=== PATIENT | male | born 1965 | race Caucasian/White ===

== ENCOUNTER 2024-05-15 18:48 | Inpatient (IN) | payer OTHER, SELFPAY ==
[2024-05-15] VITALS (17 sets, daily range): BP systolic 80–115; BP diastolic 16–79; BMI 47.0
[2024-05-15 14:23] LABS: Glucose - Point of Care 198 mg/dl (70-99)
[2024-05-15] MEDS: NSS 1000 IV ×2 (14:50→20:32)
[2024-05-15 14:54] LABS: % Basophils 0.4 % (0-2); % Eosinophils 1.9 % (0-6); % Immature Granulocytes 0.3 % (0-0.5); % Monocytes 8.3 % (1.7-9.3); % Neutrophils 56.1 % (42.2-75.2); Absolute Eosinophils 0.1 10^3/uL (0-0.7); Absolute Lymphocytes 2.3 10^3/uL (1.2-3.4); Absolute Monocytes 0.6 10^3/uL (0.1-0.6); Absolute Neutrophils 3.8 10^3/uL (1.4-6.5); Hematocrit 30.5 % (39.0-52.0); Mean Corp Hgb Conc. 36.1 g/dL (33.0-37.0); Mean Corpuscular Hgb 30.7 pg (27.0-31.0); Mean Corpuscular Volume 85.2 fL (80.0-94.0); Mean Platelet Volume 10.7 fL (7.4-10.4); Nucleated Red Blood Cells % 0 % (-); Platelet Count 187 10^3/uL (130-400); Red Blood Cell Count 3.58 10^6/uL (4.70-6.10); White Blood Cell Count 6.9 10^3/uL (4.8-10.8)
--- NOTE | 2024-05-15 15:00 | ED.GENMED ---
History of Present Illness
General
Chief Complaint: Blood Pressure Problem
Source: patient
Exam Limitations: none
Time Seen by Provider: 05/15/24 14:29
History of Present Illness
History of Present Illness:
58 year old male presents with complaints of weakness, lightheadedness. This has been progressively getting worse over the past 2 to 3 weeks. Also associated with chest pain 2 days ago. The pain stayed in his chest without radiation. He
currently does not have any chest pain. He denies any leg swelling. He denies any dark or tarry stools. He states he has been eating and drinking well. He is not anticoagulated. He was soft off of his Ozempic 3 weeks ago when he increased the
dose. He also stopped the metoprolol 3 weeks ago. He currently still is on torsemide as well as lisinopril daily. He states he has been getting low blood pressure readings at home
Past History
Past History
ED Past Medical History: Other (Sleep apnea, hypothyroidism, edema)
ED Past Surgical History: Orthopedic
Social History
Tobacco: Non-smoker
Alcohol: Occasional
Personal:
Living: with family
Family History
Family History: Diabetes, CAD and Cancer
Phy Exam
Physical Exam
Physical Exam:
General: Well-appearing obese male no acute respiratory distress
HEENT: Normocephalic atraumatic pupils equal round reactive to light
Heart: Regular rate and rhythm no murmurs
Lungs: Breath sounds distant secondary to body habitus but mostly clear
Abdomen is soft nontender nondistended no guarding or rebound normal bowel sounds
Extremities: No cyanosis or edema
Course
Orders/Labs/Results
Orders:
Orders
05/15/24 14:06
ECG [Electrocardiogram (*1)] Urgent
Reason for Study: Vertigo / Dizzy
05/15/24 14:07
EKG- Treatment ONCE
05/15/24 14:37
Complete Blood Count/With Diff Urgent
05/15/24 14:55
Add On- LAB Urgent
Tests Added?: tsh reflex to free t4
05/15/24 16:03
0.9% Sodium Chloride 1000 ml [Nss] 1,000 ml IV BOLUS
05/15/24 16:14
Comprehensive Metabolic Panel Urgent
Free T4 Urgent
TSH Reflex To Free T4 Urgent
Comment: ADD ON
Troponin I Urgent
Abnormal Lab Results
05/15/24 05/15/24 05/15/24
14:21 14:37 16:14
RBC 3.58 L 10^6/uL
(4.70-6.10)
Hgb 11.0 L g/dL
(13.0-18.0)
Hct 30.5 L %
(39.0-52.0)
MPV 10.7 H fL
(7.4-10.4)
Sodium 134 L mmol/L
(135-145)
BUN 91 H mg/dl
(9-20)
Creatinine 4.1 H* mg/dL
(0.7-1.3)
Glucose 119 H mg/dl
(70-99)
TSH (Reflex) 5.77 H uIU/ml
(0.47-4.68)
POC Glucose 198 H mg/dl
(70-99)
05/15/24 14:37
05/15/24 16:14
Vital Signs
Initial and Last Documented VS:
Initial Vital Signs
Temp Pulse Resp BP Pulse Ox
98.6 F 73 18 105/77 98
05/15/24 14:07 05/15/24 14:07 05/15/24 14:07 05/15/24 14:07 05/15/24 14:07
Last Documented Vital Signs
Temp Pulse Resp BP Pulse Ox
98.6 F 83 18 85/52 97
05/15/24 14:07 05/15/24 17:30 05/15/24 17:30 05/15/24 17:15 05/15/24 17:30
MDM/Problems Addressed
Differential Diagnosis Includes:
Sensation of weakness and lightheadedness. Consider volume depletion versus medication effect versus anemia versus electrolyte abnormality. He did complain of chest pain 2 days ago. Will do cardiac workup including EKG and troponin to evaluate
for ACS. EKG shows normal sinus rhythm without ischemic change
Troponin pending. Thyroid pending. Fluids ordered secondary to persistently low blood pressure values. No fever here.
*Critical Care Note
Total Time (30-74mins, 75-104mins- exclusive of procedures): Not Applicable
Update Note
Update Note:
Patient persistently hypotensive here he is more alert after liter of fluid. Most notably on labs patient has acute kidney injury with a creatinine of 4.1. Most recent comparison was from December 2020 which had a normal creatinine then. In the
setting of hypotension, despite stopping antihypertensives 3 weeks ago and now acute kidney injury patient requires admission to hospital.
ED Attending Note
-
Portions of this chart may have been created with voice recognition software.� Occasional wrong word or��sound alike� substitutions may have occurred due to the inherent limitations of voice recognition software.
Discharge Plan
Departure
Patient Disposition: Admit
Date of Disposition: 05/15/24
Time of Disposition: 17:55
Admit to: Telemetry
Presentation/result/management discussed w/ accepting MD/DO: Hospitalist
Discharge Problem:
Acute kidney failure
Prescriptions:
No Action
atorvastatin 40 MG tablet
40 mg PO QPM
torsemide 20 MG tablet
20 mg PO BID
allopurinol 100 MG tablet
100 mg PO DAILY
aspirin 81 MG tablet,delayed release (DR/EC)
81 mg PO DAILY
lisinopril 10 MG tablet
10 mg PO BID
metformin 500 MG tablet
500 mg PO BID@0800,1700 Qty: 0 0RF
gabapentin 600 mg Tablet
1,200 mg PO TID
lidocaine 4 % Adhesive Patch,Medicated
1 patch TOPICAL DAILYPRN PRN (Reason: lower back and neck)
trazodone 50 mg Tablet
50 mg PO HSPRN PRN (Reason: sleep)
sildenafil 100 mg Tablet
100 mg PO DAILYPRN PRN (Reason: ed)
levothyroxine [Synthroid] 75 mcg Tablet
75 mcg PO DAILY
oxycodone-acetaminophen [Percocet] 5-325 mg Tablet
1 tab PO Q8HPRN PRN (Reason: severe pain)
methocarbamol 750 mg Tablet
750 mg PO TID
tamsulosin [Flomax] 0.4 mg Capsule
0.4 mg PO HS
pantoprazole [Protonix] 40 mg Tablet,Delayed Release (Dr/Ec)
40 mg PO DAILY
albuterol sulfate [ProAir HFA] 90 mcg/actuation Hfa Aerosol Inhaler
2 puff INHALATION R Q6HPRN PRN (Reason: sob)
Referrals:
NONE,* [Family Provider] -
Interventions
Interventions:
*Risk Screen - Suicide Last Done: 05/15/24 14:07
*General Assessment Last Done: 05/15/24 14:07
*Neglect/Abuse Screening Last Done: 05/15/24 14:07
*ED COVID-19 Vaccine History Last Done: 05/15/24 14:35
ED- Cardiac Assessment Last Done: 05/15/24 14:35
ED- Neurological Assessment Last Done: 05/15/24 14:35
ED- Pulmonary Assessment Last Done: 05/15/24 14:35
Discharge Date and Time
Print Language: CROATIAN
[2024-05-15 16:41] LABS: ALT (SGPT) 23 U/L (0-50); AST (SGOT) 25 U/L (17-59); Albumin 4.3 g/dl (3.5-5.0); Alkaline Phosphatase 72 U/L (38-126); Blood Urea Nitrogen 91 mg/dl (9-20); Calcium 8.9 mg/dl (8.4-10.2); Carbon Dioxide 24 mmol/L (22-30); Chloride 98 mmol/L (98-107); Glucose 119 mg/dl (70-99); Potassium 3.6 mmol/L (3.5-5.1); Sodium 134 mmol/L (135-145); Total Bilirubin 0.5 mg/dl (0.2-1.3); Total Protein 6.8 g/dl (6.3-8.2); eGFR 16.05
[2024-05-15 16:54] LABS: Troponin I < 0.012 ng/ml
[2024-05-15 17:09] LABS: TSH Reflex To Free T4 5.77 uIU/ml (0.47-4.68)
--- NOTE | 2024-05-15 18:30 | HPS.HSE ---
Family Physician
-
Family Physician: * NONE
Chief Complaint
-
weakness
History of Present Illness
58-year-old male past medical history of hypertension, PVCs/bigeminy, hyperlipidemia, diabetes, obesity, chronic lower extremity edema, gout, hypothyroidism, BPH, obstructive sleep apnea, traumatic injury 2 years ago complicated by fractured
ribs/punctured lung, cervical disc herniations, chronic back pain, gastric ulcers, presenting with weakness and lightheadedness progressively getting worse over the past 2 to 3 weeks with an episode of passing out. He has had associated chest pain
2 days ago described as pressure although he has chronic back pain/left lower extremity pain from prior trauma. He denies any lower extremity edema. He denies any black or bloody stool. He denies any changes in medications prior to onset of
symptoms. His primary care physician told him to stop taking metoprolol due to low blood pressure but he is continuing to take lisinopril and torsemide.
He has recently been having nausea and some vomiting which was attributed to increasing doses of Ozempic which has since been discontinued for the past few weeks. He denies any diarrhea currently. He denies any fevers or chills. He denies any
cough.
He denies any history of cardiac problems as per his home health assistant. He takes torsemide for lower extremity edema.
He denies smoking or alcohol use.
Medical History
Past Medical History
Past Medical History: Reports Other (hypertension, PVCs/bigeminy, hyperlipidemia, diabetes, obesity, chronic lower extremity edema, gout, hypothyroidism, BPH, obstructive sleep apnea, traumatic injury 2 years ago complicated by fractured
ribs/punctured lung, cervical disc herniations, chronic back pain, gastric ulcers,)
Past Surgical History: Reports Orthopedic
Social History
Tobacco: Non-smoker
Alcohol: None
Drug: None
Family History
Family History: Not pertinent
Allergies / Home Medications
Allergies reflects when Allergies were last updated in [employer].
Home Medications with original date entered in [employer]
Allergy/Medication List:
Allergies
Allergy/AdvReac Type Severity Reaction Status Date / Time
Cephalosporins Allergy Unknown Verified 12/27/20 17:07
Penicillins Allergy Rash Verified 12/27/20 17:07
Home Medications
allopurinol 100 mg tablet 100 mg PO DAILY 12/27/20
aspirin 81 mg tablet,delayed release 81 mg PO DAILY 12/27/20
atorvastatin 40 mg tablet 40 mg PO QPM 12/27/20
lisinopril 10 mg tablet 10 mg PO BID 12/27/20
metformin 500 mg tablet 500 mg PO BID@0800,1700 ##0 12/27/20
torsemide 20 mg tablet 20 mg PO BID 12/27/20
albuterol sulfate 90 mcg/actuation aerosol inhaler 2 puff inhalation R Q6HPRN PRN sob 05/15/24
gabapentin 600 mg tablet 1,200 mg PO TID 05/15/24
levothyroxine 75 mcg tablet (Synthroid) 75 mcg PO DAILY 05/15/24
lidocaine 4 % topical patch 1 patch topical DAILYPRN PRN lower back and neck 05/15/24
methocarbamol 750 mg tablet 750 mg PO TID 05/15/24
oxycodone-acetaminophen 5 mg-325 mg tablet (Percocet) 1 tab PO Q8HPRN PRN severe pain 05/15/24
pantoprazole 40 mg tablet,delayed release (Protonix) 40 mg PO DAILY 05/15/24
sildenafil 100 mg tablet 100 mg PO DAILYPRN PRN ed 05/15/24
tamsulosin 0.4 mg capsule (Flomax) 0.4 mg PO HS 05/15/24
trazodone 50 mg tablet 50 mg PO HSPRN PRN sleep 05/15/24
Review of Systems
-
History Source: Patient
A 12 point ROS was completed and negative except as noted: Yes
Constitutional: Reports No Symptoms
EENT: Reports No Symptoms
Respiratory: Reports No Symptoms
Cardiac: Reports No Symptoms
Abdomen/GI: Reports No Symptoms
: Reports No Symptoms
Musculoskeletal: Reports No Symptoms
Skin: Reports No Symptoms
Neurological: Reports No Symptoms
Endocrine: Reports No Symptoms
Hematologic/Lymphatic: Reports No Symptoms
Psych: Reports No Symptoms
Physical Exam
Vital Signs
Vital Signs
Temp Pulse Resp BP Pulse Ox
98.6 F 79 17 100/67 97
05/15/24 14:07 05/15/24 18:15 05/15/24 18:15 05/15/24 18:15 05/15/24 17:30
Physical Exam
General: Well Developed, Well Nourished and No Apparent Distress
HEENT: NormoCephalic, Moist mucous membranes and Atraumatic
Respiratory: Clear
Cardiac: S1/S2 and Regular Rhythm; No Murmur or Rub
GI: Soft, Non Tender, Non Distended and Normal Bowel Sounds; No Organomegaly
Rectal: Deferred by Provider
Musculoskeletal: No Clubbing, No Cyanosis and No Edema
Skin: No Rash
Neuro: Nonfocal/grossly intact
Laboratory Results
-
05/15/24 14:37
05/15/24 16:14
Laboratory Results
Total Bilirubin 0.5 mg/dl (0.2-1.3) 05/15/24 16:14
AST 25 U/L (17-59) 05/15/24 16:14
ALT 23 U/L (0-50) 05/15/24 16:14
Alkaline Phosphatase 72 U/L (38-126) 05/15/24 16:14
Troponin I < 0.012 ng/ml 05/15/24 16:14
Data Reviewed
-
Lab Data: Labs Reviewed by me
Old Records: Reviewed
Impression/Plan
-
IMPRESSION:
PLAN:
# Hypotension secondary to lisinopril/torsemide
-No symptoms or signs of sepsis or infection
-Hold lisinopril, torsemide
-IV fluids
# Severe prerenal NATALIE secondary to hypotension
-Hold lisinopril, torsemide
-Continue IV fluids
-Check renal ultrasound
Essential hypertension
-Hold lisinopril
History of PVCs/bigeminy
Hyperlipidemia
-Continue statin
Type 2 diabetes
-Hold metformin
Obesity
Obstructive sleep apnea
-Continue CPAP
History of traumatic fall with prior fractured ribs, chronic back pain/cervical disc herniations, chronic pain
-Continue Percocet, gabapentin, lidocaine patch, methocarbamol
History of punctured lung from trauma
History of opioid use disorder in the past
Chronic lower extremity edema
-Hold torsemide
Gout
-Continue allopurinol
Hypothyroidism
-Continue levothyroxine
BPH
-Continue tamsulosin
GERD/history of upper GI bleeding secondary to gastric ulcers
-Continue Protonix
Insomnia
-Continue trazodone
Full code
DVT prophylaxis�heparin
Regular diet
[2024-05-15] MEDS: NEURONTIN 300 MG PO (20:44)
[2024-05-15] MEDS: FLOMAX 0.4 MG PO (20:44)
[2024-05-15] MEDS: PERCOCET 5/325 1 TABLET PO (20:44)
[2024-05-15] MEDS: HEPARIN 5000 UNITS SC (21:55)
[2024-05-16] MEDS: SYNTHROID 75 MCG PO (05:49)
[2024-05-16] MEDS: PERCOCET 5/325 1 TABLET PO (05:53)
[2024-05-16 05:55] LABS: % Basophils 0.6 % (0-2); % Eosinophils 2.2 % (0-6); % Immature Granulocytes 0.2 % (0-0.5); % Lymphocytes 46.1 % (20.5-51.1); % Monocytes 10.4 % (1.7-9.3); % Neutrophils 40.5 % (42.2-75.2); Absolute Eosinophils 0.1 10^3/uL (0-0.7); Absolute Lymphocytes 2.3 10^3/uL (1.2-3.4); Absolute Monocytes 0.5 10^3/uL (0.1-0.6); Hematocrit 30.4 % (39.0-52.0); Hemoglobin 10.6 g/dL (13.0-18.0); Mean Corp Hgb Conc. 34.9 g/dL (33.0-37.0); Mean Corpuscular Hgb 30.6 pg (27.0-31.0); Mean Corpuscular Volume 87.9 fL (80.0-94.0); Mean Platelet Volume 9.5 fL (7.4-10.4); Nucleated Red Blood Cells % 0 % (-); Platelet Count 137 10^3/uL (130-400); Red Blood Cell Count 3.46 10^6/uL (4.70-6.10)
[2024-05-16 06:08] LABS: ALT (SGPT) 22 U/L (0-50); AST (SGOT) 22 U/L (17-59); Albumin 4.3 g/dl (3.5-5.0); Alkaline Phosphatase 86 U/L (38-126); Blood Urea Nitrogen 84 mg/dl (9-20); Calcium 8.8 mg/dl (8.4-10.2); Carbon Dioxide 26 mmol/L (22-30); Chloride 98 mmol/L (98-107); Estimated Creatinine Clearance 38 ml/min; Glucose 116 mg/dl (70-99); Potassium 3.6 mmol/L (3.5-5.1); Sodium 137 mmol/L (135-145); Total Bilirubin 0.4 mg/dl (0.2-1.3); Total Protein 6.8 g/dl (6.3-8.2); eGFR 20.82
[2024-05-16 08:05] VITALS: BP 89/36
[2024-05-16 09:08] VITALS: BP 96/55
[2024-05-16] MEDS: ASPIR LOW (ENTERIC COATED) 81 MG PO (09:15)
[2024-05-16] MEDS: PROTONIX 40 MG PO (09:15)
[2024-05-16] MEDS: NEURONTIN 300 MG PO ×3 (09:15→22:05)
[2024-05-16] MEDS: NSS 1000 IV ×2 (09:16→22:02)
[2024-05-16] MEDS: HEPARIN 5000 UNITS SC ×2 (09:16→22:02)
[2024-05-16] MEDS: ZYLOPRIM 100 MG PO (09:34)
[2024-05-16 09:50] LABS: Glucose - Point of Care 121 mg/dl (70-99)
[2024-05-16 12:56] LABS: Glucose - Point of Care 109 mg/dl (70-99)
--- NOTE | 2024-05-16 14:16 | CM ---
CM met with pt at bedside
Pt lives with his in a 2 story home, 6 steps to enter
Independent, drives. Not working - disabled
DME - CPAP - unable to recall provider
SNF - past hx in [facility]
HH - no past hx
Has ride at d/c
PCP - Dr Leigh De Leon
Pharm - [facility]
CM will follow for d/c needs
Plan - anticipate home no needs
[2024-05-16 15:49] VITALS: BP 117/66
--- NOTE | 2024-05-16 16:12 | W.PN.HOSP.TC ---
Today's Communication/Plan
-
Continue IVF and trend BMP
Hold torsemide and lisinopril, avoid NSAIDs
Monitor urine output
Assessment / Plan
Assessment / Plan
#Nonoliguric prerenal NATALIE
-Secondary to reduced water intake, increase exercise, ACEi and torsemide
-Presented with serum creatinine of 4.1, downtrending to 3.3 on IVF today
-Renal ultrasound without any signs of hydronephrosis, UA without signs of glomerulonephritis
-No urine studies obtained in the ED, IVF given, no utility now
Plan
-Continue isotonic IVF, trend daily BMP
-Hold ROSA ISELA inhibitor and torsemide, avoid NSAIDs
-Monitor urinary output
#NIDDM2
-Home medications include metformin, recently started on GLP-1 agonist as well
-No known microvascular complications, no recent A1c to review
-Home metformin was held due to renal insufficiency admission
-Currently receiving ISS plus Accu-Chek
#Chronic lower extremity edema
-Likely venous stasis, currently on torsemide to reduce this
-He does have chronic dermatological findings, no actual edema now
-Would avoid diuretics due to his NATALIE; will consider more supportive measures for CVI
-Advised compression stockings and leg elevation at discharge
#Hypothyroidism
-Unclear etiology, no history of thyroid ablation or thyroidectomy
-Currently on levothyroxine at 75 mcg daily
-Appears stable
# PVCs/bigeminy
-Noted per history, heart rate appears regular today
-Not currently on any AV jessenia blockade
#Obstructive sleep apnea
-Unlikely related to chronic edema, no evidence for RV failure or pulm HTN
-Noncontributory
#Gout
-Home regimen includes allopurinol, no signs or symptoms of flare at this time
#H/O PUD
-Home regimen includes Protonix 40 mg daily
-No signs or symptoms of GI bleeding here
-Is currently receiving chemical DVT prophylaxis with heparin
#Traumatic injury 2 years ago from falling off a roof
#Chronic pain syndrome
-Follows with pain management, currently on multimodal regimen for analgesia
-Meds include gabapentin, methocarbamol, Percocet
DVT prophylaxis: Subcutaneous heparin
Diet: House
CODE STATUS: Full code
Anticipated Discharge: 24 - 48 hours
Subjective/Interval History
-
Date of Service: May 16, 2024
No acute events overnight. Patient states he feels well today, no acute complaints. Denies chest pain, shortness of breath, fevers or chills, nausea, vomiting, diarrhea. No urinary issues, states he is at baseline
He states that recently he has been more active during his recovery from a traumatic injury where he fell off a roof 2 years ago. Additionally, he has not been drinking as much water as previously. He also says that he was started on GLP-1 agonist
as an outpatient and as the dose increased he developed some diarrhea. Denies recent dose adjustments of his torsemide or lisinopril. He uses his torsemide for chronic lower extremity edema.
Objective Data
-
Labs:
Laboratory Results
05/16/24
05:33
WBC 5.0
Hgb 10.6 L
Hct 30.4 L
Plt Count 137 D
Sodium 137
Potassium 3.6
Chloride 98
Carbon Dioxide 26
BUN 84 H
Creatinine 3.3 H
Glucose 116 H
Calcium 8.8
Total Bilirubin 0.4
AST 22
ALT 22
Alkaline Phosphatase 86
Vital Signs:
Vital Signs
Temp Pulse Resp BP Pulse Ox
98.6 F 88 17 117/66 99
05/16/24 15:49 05/16/24 15:49 05/16/24 15:49 05/16/24 15:49 05/16/24 15:49
I&O
05/15/24 05/16/24 05/17/24
06:59 06:59 06:59
Output Total 1200 / 1200
Balance -1200 / -1200
Review of Systems
-
History Source: Patient
All other systems: Reviewed and negative
Physical Exam
-
General: No Apparent Distress, Comfortable, Conversant and Obese
HEENT: Normocephalic, Atraumatic, Moist Mucous Membranes and Anicteric
Respiratory: Clear to Auscultation and Non Labored Respirations; Negative Wheezes, Rales or Rhonchi
Cardiac: Regular Rhythm and S1/S2; Negative Murmur, Rub, JVD or Gallop
GI: Soft, Nontender, Nondistended and Normal Bowel Sounds
Musculoskeletal: No Clubbing, No Cyanosis, No Edema and Other
Skin: Warm, Dry and Other (Chronic venous stasis dermatitis BLLE); Negative Jaundice
Neuro: AO x 3, Nonfocal/Grossly Intact and Central Nerve's Intact; Negative Tremors
Data Reviewed
-
Ultrasound: Report Reviewed by me
Labs: Labs Reviewed by me and Discussed with Patient
[2024-05-16 16:49] LABS: Glucose - Point of Care 100 mg/dl (70-99)
[2024-05-16] MEDS: LIPITOR 40 MG PO (16:50)
[2024-05-16 21:47] LABS: Glucose - Point of Care 145 mg/dl (70-99)
--- NOTE | 2024-05-16 22:00 | PTCARENOTE ---
Pt becoming increasingly restless and reports feeling nauseated. Pt requesting gabapentin, but states that the dose we have ordered is too low. Pt became increasingly agitated and anxious about impending pain d/t significant decrease in gabapentin.
HOTEL MAINTENANCE ENGINEER contacted and asked if normal dose could be resumed. HOTEL MAINTENANCE ENGINEER could not increase at this time d/t pt current kidney function. Pt asked to speak with GARAGE DOOR SERVICE TECHNICIAN about concerns with current gabapentin dosage. Pt called while nurse was speaking with pt
and began giving false information about current conversation to . was on speaker phone so situation was discussed with . HOTEL MAINTENANCE ENGINEER visited pt but was dismissed by pt who was growing increasingly agitated. Pt asked to speak with MD and
threatened to leave AMA or have bring home medications into hospital. MD visited pt who discussed plan of care with pt as well. Pt still very agitated with MD and told him that he is considering leaving AMA and would let us know. RN went in to
see pt who stated he wants to leave in the morning because it is late and his drove home a hour away. Pts IV pump occluded, unable to flush IV. Pt refused to have new IV placed.
[2024-05-16] MEDS: NON-FORMULARY ITEM 750 MG PO (22:05)
[2024-05-16] MEDS: FLOMAX 0.4 MG PO (22:05)
[2024-05-16 23:02] VITALS: BP 118/68
[2024-05-17] MEDS: NSS IV (04:48)
--- NOTE | 2024-05-17 05:24 | PTCARENOTE ---
Pt requesting to leave AMA. WIG DRESSER aware, IV removed. Pt refused to sign AMA paperwork, witnessed by MARYA and RN.
--- NOTE | 2024-05-17 05:35 | W.PN.UPDATE ---
Update Note
Progress Note Update
Patient requested provider to come to floor as he wanted to leave AMA. Patient reviewed AMA paperwork. He returned paperwork and state he does not want to sign it. Floor RN witnessed patient refusal to sign AMA paperwork. Paper signed by provider
and floor RN noting patients refusal to sign. Patient witnessed leaving medical floor at approximately 0540 with belongings in hand.
== END 2024-05-17 05:48 | disposition home or self-care (01) | DRG 682 ==
LOC: 3 WEST ACU 18:48
PROVIDERS: Physician Assistant; ADMITTING PHYSICIAN Hospitalist; ATTENDING PHYSICIAN Internal Medicine; EMERGENCY PHYSICIAN Emergency Medicine
DX: N17.9 Acute kidney failure, unspecified (principal); K25.4 Chronic or unspecified gastric ulcer with hemorrhage; I95.2 Hypotension due to drugs; T46.4X5A Adverse effect of angiotensin-converting-enzyme inhibitors, initial encounter; I10 Essential (primary) hypertension; E78.5 Hyperlipidemia, unspecified; E11.9 Type 2 diabetes mellitus without complications; E66.9 Obesity, unspecified; G47.33 Obstructive sleep apnea (adult) (pediatric); E03.9 Hypothyroidism, unspecified; K21.9 Gastro-esophageal reflux disease without esophagitis; I49.3 Ventricular premature depolarization; M10.9 Gout, unspecified; G47.00 Insomnia, unspecified; N40.0 Benign prostatic hyperplasia without lower urinary tract symptoms
CPT/HCPCS: 76770; 80053; 82962; 84439; 84443; 84484; 85025; 93005; 96360; 99285

== ENCOUNTER 2025-06-18 07:15 | Emergency (ER) | payer OTHER, SELFPAY ==
[2025-06-18 07:21] VITALS: BP 169/104
--- NOTE | 2025-06-18 08:08 | ED.SKININJ ---
HPI-Injury
General
Chief Complaint: Bite
Source: patient
Exam Limitations: none
Time Seen by Provider: 06/18/25 07:27
History of Present Illness-Injury
Initial Injury comments:
59-year-old male presents with dog bite to the nose. His dog bit him. Dog's vaccines are up-to-date. Patient's last tetanus is within 4 years. No other complaints at this time
Past History
Past History
ED Past Medical History: Other (Sleep apnea, hypothyroidism, edema)
ED Past Surgical History: Orthopedic
Social History
Tobacco: Non-smoker
Alcohol: Occasional
Personal:
Living: with family
Family History
Family History: Diabetes, CAD and Cancer
Phy Exam
Physical Exam
Physical Exam:
General: Well-appearing male no acute distress
Skin: Dog bite to the nose. There is a portion over the bridge of the nose that has a piece of skin missing that covers about a centimeter by centimeter area. Extending from this inferiorly to the left nostril there is a laceration. Laceration is
not through and through.
Extremities: No cyanosis
Course
Vital Signs
Initial and Last Documented VS:
Initial Vital Signs
Temp Pulse Resp BP Pulse Ox
98.4 F 103 18 169/104 97
06/18/25 07:21 06/18/25 07:21 06/18/25 07:21 06/18/25 07:21 06/18/25 07:21
Last Documented Vital Signs
Temp Pulse Resp BP Pulse Ox
98.4 F 103 18 169/104 97
06/18/25 07:21 06/18/25 07:21 06/18/25 07:21 06/18/25 07:21 06/18/25 07:21
MDM/Problems Addressed
Differential Diagnosis Includes:
Dog bite/laceration to the nose. This was irrigated with saline. The laceration portion was able to be closed with 5-0 Prolene sutures. A total of 6 sutures were required. The remaining part of the wound unfortunately is not amenable to sutures
and will require healing by secondary intent. Vaccines are up-to-date Sean started on Augmentin. Antibacterial ointment and dressing was applied
*Pulse Oximetry
SaO2: 97
Oxygen Mode of Delivery: Room air
Patient hypoxic: no
*Critical Care Note
Total Time (30-74mins, 75-104mins- exclusive of procedures): Not Applicable
ED Attending Note
-
Portions of this chart may have been created with voice recognition software.� Occasional wrong word or��sound alike� substitutions may have occurred due to the inherent limitations of voice recognition software.
Discharge Plan
Departure
Patient Disposition: Home (Routine Discharge)
Date of Disposition: 06/18/25
Time of Disposition: 08:13
Patient with high blood pressure during this ER visit?: No
Discharge Problem:
Dog bite
Instructions: Animal Bites (DC), Laceration Repair With Stitches (DC)
Prescriptions:
New
amoxicillin-pot clavulanate 875-125 mg tablet
1 tab PO BID Qty: 14 0RF
No Action
atorvastatin 40 MG tablet
40 mg PO QPM
torsemide 20 MG tablet
20 mg PO BID
allopurinol 100 MG tablet
100 mg PO DAILY
aspirin 81 MG tablet,delayed release (DR/EC)
81 mg PO DAILY
lisinopril 10 MG tablet
10 mg PO BID
gabapentin 600 mg Tablet
1,200 mg PO TID
lidocaine 4 % Adhesive Patch,Medicated
1 patch TOPICAL DAILYPRN PRN (Reason: lower back and neck)
trazodone 50 mg Tablet
50 mg PO HSPRN PRN (Reason: sleep)
sildenafil 100 mg Tablet
100 mg PO DAILYPRN PRN (Reason: ed)
levothyroxine [Synthroid] 75 mcg Tablet
75 mcg PO DAILY
oxycodone-acetaminophen [Percocet] 5-325 mg Tablet
1 tab PO Q8HPRN PRN (Reason: severe pain)
methocarbamol 750 mg Tablet
750 mg PO TID
tamsulosin [Flomax] 0.4 mg Capsule
0.4 mg PO HS
pantoprazole [Protonix] 40 mg Tablet,Delayed Release (Dr/Ec)
40 mg PO DAILY
albuterol sulfate [ProAir HFA] 90 mcg/actuation Hfa Aerosol Inhaler
2 puff INHALATION R Q6HPRN PRN (Reason: sob)
metformin 500 MG tablet
500 mg PO BID@0800,1700
Activity Restrictions/Additional Instructions:
Apply antibacterial ointment daily. Have sutures removed in 5 to 7 days. Return if needed
Interventions
Interventions:
*Risk Screen - Suicide Last Done: 06/18/25 07:21
*General Assessment Last Done: 06/18/25 07:21
*Neglect/Abuse Screening Last Done: 06/18/25 07:21
ED-Skin Assessment Last Done: 06/18/25 07:32
Discharge Date and Time
Print Language: SWAZI
== END 2025-06-18 08:42 | disposition home or self-care (01) ==
LOC: EMR 07:15
PROVIDERS: EMERGENCY PHYSICIAN Emergency Medicine; FAMILY PHYSICIAN Internal Medicine
DX: S01.21XA Laceration without foreign body of nose, initial encounter (principal); W54.0XXA Bitten by dog, initial encounter; E03.9 Hypothyroidism, unspecified; G47.30 Sleep apnea, unspecified
CPT/HCPCS: 12011; 99283